=== PATIENT | male | born 1940 | race Caucasian/White ===

== ENCOUNTER 2017-03-26 10:13 | Day surgery (SDC) | payer MEDICARE, OTHER ==
--- NOTE | 2017-03-26 08:18 | HP ---
DATE OF SURGERY: 03/26/2017 HISTORY OF PRESENT ILLNESS: The patient is a 76 year-old who has some problems with his bowels. No prior colonoscopy. He had some lower abdominal vague aches, chronically some constipation. He denies any bloody stools. He had CT scan done on 02/14/2017 with no acute inflammatory, no bowel obstruction, had some incidental gallstones, moderate amount of stool throughout the colon. PAST MEDICAL HISTORY: Hypertension. PAST SURGICAL HISTORY: He had rods and pins in his leg in 1970. Left shoulder replaced in 2006. Hip replaced in 2011. Cataract surgery May 2015. 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 Large right inguinal hernia repair in the past. MEDICATIONS: Amlodipine, lisinopril, clonidine. ALLERGIES: NKDA. PAST SURGICAL HISTORY: FAMILY HISTORY: Negative for colon cancer. SOCIAL HISTORY: No smoking or alcohol abuse. Noncontributory. REVIEW OF SYSTEMS: Twelve systems reviewed per admission assessment. No chest pain or palpitations currently other systems negative or noncontributory as above and per preadmission questionnaire. PHYSICAL EXAMINATION: GENERAL: No acute distress. HEENT: Sclerae nonicteric. NECK: No JVD. CHEST: Equal excursion, nonlabored breathing. CVS: Regular rate and rhythm. ABDOMEN: Soft. No peritoneal signs. EXTREMITIES: No significant edema. NEURO: Alert, moving extremities symmetrically. No gross motor deficits noted. IMPRESSION: Increasing constipation some lower abdominal aches, no prior colonoscopy. He is in need of screening colonoscopy. Risks and benefits explained in detail but not limited to bleeding or infection, small risk of bowel injury or perforation possibly requiring open procedure, small risk of missed or nondiagnosis or incomplete exam possibly requiring barium enema, other studies or procedures. He understands and agrees to the planned procedure and will proceed with outpatient colonoscopy.
[~2017-03-26 10:13] MED LIST: DIPRIVAN 200 MG/20 ML IV ONE; Lactated Ringers 1,000 ML IV SCH; Versed 2 MG/2 ML Injection IV ONE
[2017-03-26 13:04] VITALS: O2SAT 100
[2017-03-26 13:17] VITALS: BP 149/80; PULSE 67
--- NOTE | 2017-03-26 13:54 | OP ---
SURGERY DATE/TIME: 03/26/2017 1139 PREOPERATIVE DIAGNOSES: 1) No prior colonoscopy. 2) Change in bowel habits, increasing constipation. POSTOPERATIVE DIAGNOSES: 1) Large rectal mass extending up to rectosigmoid area near obstructing. 2) Small raised lesion versus hyperplastic lesion mid to distal rectum. 3) Internal and external hemorrhoids. 4) Somewhat poor prep. PROCEDURES: 1) Flexible sigmoidoscopy, hot biopsy raised rectal lesions. 2) Multiple cold biopsies of large rectal extending up to rectosigmoid area mass with ink spot tattooing of location. SURGEON: Dr. Peyman Segovia. ANESTHESIA: MAC. ESTIMATED BLOOD LOSS: Minimal. INDICATIONS: As noted above. Risks and benefits explained in detail but not limited to and consent obtained. DESCRIPTION OF PROCEDURE AND FINDINGS: The patient is taken to the endoscopy room. MAC anesthesia introduced. After official time out and no disagreement with the planned procedure in lateral position, digital rectal exam revealed that the mass was palpable. He had some internal and external hemorrhoids. Video colonoscope inserted up to the rectosigmoid area where this large near obstructing mass was extending from rectosigmoid fpc down to the rectum. Despite careful attempts of navigating past this the opening was not wide enough, patent enough to allow for passage of the scope passed this area. Multiple cold biopsies of the mass were taken and some ink spot tattooing to the seemingly normal appearing mucosa distal to the mass. Other than that prior to doing all the biopsy of this large mass there were some raised lesion versus hyperplastic lesions in the mid to more distal rectum. These were removed with hot biopsy forceps with brief bursts of cautery. Good hemostasis noted. There had been some stool coating this. The patient was not completely obstructed. With finger palpation could easily palpate a few centimeters up on this mass. Therefore at this point as the scope was unable to be passed through there to complete the rest of the colonoscopy. It was felt the patient would benefit for referral for likely official chemo and radiation in attempt to shrink this. The family was explained that there is a possibility if he fails to continue to move his bowels or if he reaches the point of complete obstruction there is possibility of a needing ostomy prior to that. Otherwise if able to get opinion from possible chemo/radiation to shrink this down and proceed with surgery thereafter to allow for possible reanastomosis. Otherwise will discuss with Dr. Mardini recommendations. The patient tolerated the procedure well. There were no immediate complications.
== END 2017-03-26 13:18 | disposition home or self-care (01) ==
LOC: SDC 10:13
PROVIDERS: ATTEND Surgery
PROC: 0DBP8ZX Excision of Rectum, Via Natural or Artificial Opening Endoscopic, Diagnostic (ICD-10-PCS; principal; 2017-03-26)
PROC: 3E0H8GC Introduction of Other Therapeutic Substance into Lower GI, Via Natural or Artificial Opening Endoscopic (ICD-10-PCS; 2017-03-26)
DX: C20 Malignant neoplasm of rectum (principal); K63.5 Polyp of colon; R22.9 Localized swelling, mass and lump, unspecified; K64.4 Residual hemorrhoidal skin tags; K64.8 Other hemorrhoids; K59.00 Constipation, unspecified; I10 Essential (primary) hypertension
CPT/HCPCS: 00810; 36415; 88305; 99100; J2250; J2704

== ENCOUNTER 2017-04-05 08:45 | Day surgery (SDC) | payer MEDICARE, OTHER ==
--- NOTE | 2017-04-03 08:52 | HP ---
PROCEDURE DATE: 04/05/17 HISTORY OF PRESENT ILLNESS: Patient is a 76 y/o with no prior colonoscopy. Had been having problems with constipation. He just underwent colonoscopy. He had a very low-lying tumor extending down into his rectum. Given the massive size, this was near obstructing. Did tolerate the bowel prep. [place] he would benefit from attempted neoadjuvant chemotherapy given the size of the tumor prior to attempted surgical resection. CURRENT MEDICATIONS: Include lisinopril, clonidine, and amlodipine. ALLERGIES: NKDA. PAST SURGICAL HISTORY: Has had a skin cancer removed in the past, had hernia surgery, cataract surgery, and a hip surgery a couple times on the left. He had right shoulder replaced. Had a broken leg back in the that he had worked on. FAMILY HISTORY: Negative for colon cancer. SOCIAL HISTORY: No alcohol abuse. No smoking. REVIEW OF SYSTEMS: 12 systems reviewed per admission assessment. No chest pain or palpitations. Other systems negative or noncontributory other than above and per preadmission questionnaire. PHYSICAL EXAMINATION: GENERAL: No acute distress. HEENT: Sclerae nonicteric. NECK: No JVD. CHEST: Equal excursion. Nonlabored breathing. CVS: Regular rate and rhythm. ABDOMEN: Soft. No peritoneal signs. EXTREMITIES: No significant edema. NEURO: Alert, moving extremities symmetrically. No gross motor deficits noted. IMPRESSION: 1. 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 FEEL HE NEEDS SOME NEOADJUVANT TREATMENT WITH CHEMO AND RADIATION. Seen Dr. Guerra and now needs a Port-a-Cath placement to start treatments. Later on, if there are problems at all with the treatment, would proceed with resection at a later date following neoadjuvant therapy. He understands if he failed to progress enough and developed an obstruction, he could need an ostomy in the short-term. Otherwise, at this time, will proceed with Port-a-Cath placement. General risks of Port-a-Cath placement including, but not limited to, bleeding; infection; risk of hematoma or seroma formation vs thrombosis or pneumothorax; risk of aches or pains; risk of port infection or port or catheter fracture or failure possibly requiring removal or replacement; general risks of anesthesia, deep vein thrombosis, pulmonary embolism, or pneumonia; remote risk of arterial or other major venous issue or injury; risk of ongoing morbidity and mortality, but not limited to. He understands and agrees to the planned procedure. Will proceed with Port-a-Cath placement as an outpatient. Will give neoadjuvant treatment of this cancer in the upper rectum extending down into the rectum, this large, near obstructing mass prior to considering surgical resection.
[~2017-04-05 08:45] MED LIST changes: +CEFAZOLIN 2 GM-D5W BAG** 2 GM/50 ML ML IV ONE; -DIPRIVAN 200 MG/20 ML IV ONE; +Lactated Ringers 0 ML IV ONE; +Lactated Ringers 1,000 ML IV ONE; -Versed 2 MG/2 ML Injection IV ONE; +XYLOCAINE 1% HCL 20 ML MDV ONE
[2017-04-05] MEDS ORDERED: XYLOCAINE 1% HCL 20 ML MDV ONE (10:44)
[2017-04-05 13:14] VITALS: BP 157/93; PULSE 60; O2SAT 97
[2017-04-05] MEDS ORDERED: SUBLIMAZE 100 MCG/2 ML IV ONE (15:53)
[2017-04-05] MEDS ORDERED: DIPRIVAN 200 MG/20 ML IV ONE (15:53)
--- NOTE | 2017-04-06 03:03 | XRAY ---
Indication: Port placement. Intraoperative fluoroscopy was provided for 7 seconds. A single digital spot image submitted for interpretation demonstrates the left jugular port catheter to extend into the mid SVC pointing inferiorly. Correlate with intraoperative findings/report.
--- NOTE | 2017-04-06 07:45 | OP ---
SURGERY DATE/TIME: 04/05/2017 1020 PREOPERATIVE DIAGNOSIS: Large near obstructing rectal cancer in need of neoadjuvant chemotherapy access. POSTOPERATIVE DIAGNOSIS: Large near obstructing rectal cancer in need of neoadjuvant chemotherapy access. PROCEDURE: Tunnel Port-A-Cath placement with C-arm fluoroscopy with ultrasound guided interpretation and cannulation left internal jugular vein. SURGEON: Dr. Peyman Segovia. ANESTHESIA: MAC. 1% lidocaine local. ESTIMATED BLOOD LOSS: Minimal. INDICATIONS: As noted above. Risks and benefits explained in detail and not limited to and consent was obtained. DESCRIPTION OF PROCEDURE AND FINDINGS: The patient is taken to the operating room. MAC anesthesia introduced. Neck and chest prepped and draped in usual sterile fashion. After official time out and no disagreement with planned procedure in Trendelenburg position 1% lidocaine local was infiltrated in the left subclavicular area. 18 gauge cannulation needle was inserted but despite a couple of passes there were inadequate return for any passage of the guide wire. It was then elected to go to the jugular approach. Ultrasound sterile probe, sterile jelly. Transducer easily compressible left internal jugular vein was identified. 1% lidocaine local was infiltrated. Even this easily visible vein it had a dense wall. It was not easy to stay in the lumen to allow for aspiration. Whether he was low on volume or not was decompressed. There was a fine line between being out of the vein or through the vein finally allowing enough adequate venous return. The guide wire was passed without difficulty. However initially it was wanting to go up the right jugular on C-arm fluoroscopy. It was repositioned, directed down the superior vena cava confirmed on C-arm fluoroscopy with spot film. At this point tunnel track and port pocket area anesthetized with 1% lidocaine local. A transverse incision made inferior subcu. Port pocket created with aide of cautery. Port secured to the chest wall with Prolene suture x2. Catheter tunneled down from the cannulation stab wound in the neck down the port pocket on the chest. Dilator break away sheath easily fed over the guide wire. The catheter was fed down the breakaway sheath. However the catheter is wanting to flip up the right jugular on C-arm fluoroscopy and this necessitated pulling the catheter back. Re-advancing the guide wire through the catheter which was then directed back down the superior vena cava with spot films with C-arm. As this was confirmed the guide wire is removed. The catheter is confirmed down the superior vena cava on C-arm fluoroscopy. Lung peña noted to be up bilaterally. Catheter snapped on the port with the hub. It aspirated dark nonpulsatile venous return with ease, flushed with heparinized saline with ease. On C-arm fluoroscopy the lung peña noted to be up bilaterally. The catheter tip was in the distal superior vena cava on C-arm fluoroscopy. It was felt that no further x-rays were necessary. The patient tolerated the procedure well. There were no immediate complications. Findings discussed with the family out in the waiting area. Will proceed with neoadjuvant chemotherapy for large rectal cancer.
== END 2017-04-05 12:20 | disposition home or self-care (01) ==
LOC: SDC 08:45
PROVIDERS: ATTEND Surgery
PROC: 05HN33Z Insertion of Infusion Device into Left Internal Jugular Vein, Percutaneous Approach (ICD-10-PCS; principal; 2017-04-05)
DX: C20 Malignant neoplasm of rectum (principal); Z95.828 Presence of other vascular implants and grafts; Z85.828 Personal history of other malignant neoplasm of skin
CPT/HCPCS: 00532; 77001; 99100; C1788; J0690; J1642; J2704; J3010

== ENCOUNTER 2017-06-25 09:00 | Day surgery (SDC) | payer MEDICARE, OTHER ==
--- NOTE | 2017-06-22 13:11 | HP ---
DATE OF SURGERY: 06/25/2017 HISTORY OF PRESENT ILLNESS: The patient is a 77 year-old with history of rectal cancer. He is on neoadjuvant chemotherapy as it was upper part of his rectum. He now needs follow up colonoscopy to determine if he is a candidate for considering surgical resection. PAST MEDICAL HISTORY: Includes colon cancer, hypertension. PAST SURGICAL HISTORY: Hip placement in the past. Shoulder replacement. Cataract surgery. Rods and pins in his leg in the past. Colonoscopy and biopsy. Port-A-Cath placement. MEDICATIONS: Includes lisinopril, clonidine, amlodipine, iron tablets. ALLERGIES: NKDA. FAMILY HISTORY: Diabetes, hypertension, lung cancer. SOCIAL HISTORY: No alcohol abuse. REVIEW OF SYSTEMS: Twelve systems reviewed as noted above. No chest pain or palpitations other systems negative or noncontributory as above and per preadmission questionnaire. PHYSICAL EXAMINATION: GENERAL: No acute distress. HEENT: Sclerae nonicteric. NECK: No JVD. CHEST: Equal excursion, nonlabored breathing. CVS: Regular rate and rhythm. ABDOMEN: Soft. No peritoneal signs. EXTREMITIES: No significant edema. NEURO: Alert, moving extremities symmetrically. No gross motor deficits noted. IMPRESSION: History of upper rectal up to rectosigmoid area cancer. He has had some neoadjuvant treatment and needs follow up flexible sigmoidoscopy for further evaluation to see if he is a candidate to consider resection, reanastomosis versus removal of the rectum and enterostomy. Risks and benefits explained in detail including but not limited to bleeding or infection, small risk of bowel injury or perforation, small risk of sedation or anesthesia, small risk of bowel prep, risk of nausea and cramping afterwards. He understands and agrees to the planned procedure and will proceed with flexible sigmoidoscopy to evaluate this area of rectal cancer for further evaluation to determine definitive surgical procedure.
[~2017-06-25 09:00] MED LIST changes: -CEFAZOLIN 2 GM-D5W BAG** 2 GM/50 ML ML IV ONE; -Lactated Ringers 0 ML IV ONE; -Lactated Ringers 1,000 ML IV ONE; -XYLOCAINE 1% HCL 20 ML MDV ONE
[2017-06-25] MEDS ORDERED: Ketamine HCl 50 MG/ML IV ONE (09:01)
[2017-06-25] MEDS ORDERED: DIPRIVAN 200 MG/20 ML IV ONE (09:01)
[2017-06-25] MEDS ORDERED: Sodium Chloride 0.9% 10 ML FLUSH Syringe PORT FLUSH PRN (11:21)
[2017-06-25 11:25] VITALS: BP 137/91; PULSE 48; O2SAT 95
--- NOTE | 2017-06-26 09:04 | OP ---
SURGERY DATE/TIME: 06/25/2017 1000 PREOPERATIVE DIAGNOSIS: Rectal cancer status post neoadjuvant chemo and radiation, in need of follow up endoscopy to evaluate and determine if he is a candidate for proceeding with surgical intervention and resection. POSTOPERATIVE DIAGNOSIS: Ulcerated mass rectum about 8 cm from the anal verge. PROCEDURE: Flexible sigmoidoscopy with ink spot tattoo of distal margin of rectal mass. SURGEON: Dr. Peyman Segovia. ANESTHESIA: MAC. ESTIMATED BLOOD LOSS: Minimal. INDICATIONS: As noted above. Risks and benefits explained in detail and not limited to and consent obtained. DESCRIPTION OF PROCEDURE AND FINDINGS: The patient is taken to the endoscopy room. MAC anesthesia was introduced. After official time out and no disagreement with planned procedure, the patent had some internal and external hemorrhoids. Video colonoscope inserted and passed up about 8 to 10 cm and was at the bottom edge of the ulcerated mass. It had not appeared to have resolved with neoadjuvant treatment. The scope was able to be passed up through there. More proximal colon was benign. The scope was pulled back. Ink spot tattooing was accomplished injecting in three separate sites 1 cc of ink spot tattoo marking the distal margin of this ulcerated mass. This gentleman is frail but appears to be high enough in the rectum that it would be worthwhile to attempt resection and re-anastomosis. The family was explained that there was a possibility that he might need an ostomy whether temporary or longer term. I will see him back in the office next week to go over the results.
== END 2017-06-25 11:38 | disposition home or self-care (01) ==
LOC: SDC 09:00
PROVIDERS: ATTEND Surgery
PROC: 3E0H8GC Introduction of Other Therapeutic Substance into Lower GI, Via Natural or Artificial Opening Endoscopic (ICD-10-PCS; principal; 2017-06-25)
DX: K62.89 Other specified diseases of anus and rectum (principal); Z85.048 Personal history of other malignant neoplasm of rectum, rectosigmoid junction, and anus; Z85.038 Personal history of other malignant neoplasm of large intestine; I10 Essential (primary) hypertension; Z79.899 Other long term (current) drug therapy
CPT/HCPCS: 00810; 99100; J1642; J2704

== ENCOUNTER 2018-06-24 09:55 | Day surgery (SDC) | payer MEDICARE, OTHER ==
--- NOTE | 2018-06-24 08:56 | HP ---
DATE OF SURGERY: 06/24/2018 HISTORY OF PRESENT ILLNESS: The patient is an 78 year-old gentleman who has history of cancer status post resection. He is okay, bowel movements are fine, no bloody stools. He is in need of follow up colonoscopy for further evaluation. PAST MEDICAL HISTORY: Hypertension, rectal cancer. He had cerebrovascular accident in the past. Pneumothorax in the past. PAST SURGICAL HISTORY: Fracture of the leg in the past. He had hernia repair. Shoulder replacement. Hip replacement. Lesions removed from his cheek in the past. Cataract surgery, colonoscopy. He also had resection for his colorectal cancer in the past. MEDICATIONS: His most recent medication includes lisinopril, clonidine, amlodipine. ALLERGIES: NKDA. FAMILY HISTORY: Diabetes, hypertension. Negative for colon cancer. SOCIAL HISTORY: He quit smoking in . He smoked three packs per day in the past. He denies alcohol abuse. REVIEW OF SYSTEMS: Twelve systems reviewed. No chest pain or palpitations other systems negative or noncontributory as above and per preadmission questionnaire. PHYSICAL EXAMINATION: GENERAL: No acute distress. HEENT: Sclerae nonicteric. NECK: No JVD. CHEST: Equal excursion, nonlabored breathing. CVS: Regular rate and rhythm. ABDOMEN: Soft. No peritoneal signs. EXTREMITIES: No significant edema. NEURO: Alert, moving extremities symmetrically. No gross motor deficits noted. RECTAL: Deferred timed to endoscopy exam. IMPRESSION: History of cancer status post resection. He is in need of follow up colonoscopy. I feel he is a candidate. Risks and benefits explained in detail including but not limited to bleeding or infection, small risk of bowel injury or perforation possibly requiring open procedure, risk of missed or nondiagnosis or incomplete exam possibly requiring barium enema, other studies or procedures. He understands and agrees to the planned procedure and will proceed with outpatient follow up colonoscopy.
[2018-06-24] MEDS ORDERED: Ketamine HCl 50 MG/ML IJ ONE (09:56)
[2018-06-24] MEDS ORDERED: DIPRIVAN 200 MG/20 ML IV ONE (09:56)
[2018-06-24] MEDS ORDERED: Lactated Ringers 1,000 ML IV SCH (10:00)
[2018-06-24] MEDS ORDERED: Lactated Ringers 1,000 ML IV ONE (10:01)
[2018-06-24 13:39] VITALS: BP 150/86; PULSE 56; O2SAT 95
--- NOTE | 2018-06-25 07:49 | OP ---
SURGERY DATE/TIME: 06/24/2018 1136 PREOPERATIVE DIAGNOSIS: History of colorectal cancer in need of follow up colonoscopy. POSTOPERATIVE DIAGNOSES: 1) Mild inflammation colorectal anastomotic site. No obvious mass. 2) Rectal polyp. 3) Additional small raised lesion rectum. 4) Small raised lesion versus hyperplastic lesion transverse colon. 5) Diverticulosis. 6) Somewhat poor prep limiting the exam. 7) Small internal and external hemorrhoids. PROCEDURES: 1) Colonoscopy to cecum with hot biopsy small raised lesions versus hyperplastic in transverse colon x2. 2) Hot snare polypectomy small rectal polyp. 3) Hot biopsy small raised lesion versus early polyp versus early second polyp rectum. 4) Cold biopsy margin of inflammation anastomotic site. SURGEON: Dr. Peyman Segovia. ANESTHESIA: MAC. ESTIMATED BLOOD LOSS: Minimal. INDICATIONS: As noted above. Risks and benefits explained in detail but not limited to and consent obtained. DESCRIPTION OF PROCEDURE AND FINDINGS: The patient is taken to the operating room. MAC anesthesia introduced. After official time out and no disagreement with planned procedure, digital rectal exam did not reveal any rectal masses. He did have small internal and external hemorrhoids. Video colonoscope inserted and passed up through the anastomotic site to the tortuous sigmoid, descending and transverse colon. With external pressure the scope was able to be passed around the cecum. Appendiceal orifice and valve well visualized. Prep overall was somewhat poor with some liquidy semi-solid stool limiting the exam. It was suctioned and irrigated as well as possible but did limit the exam for small lesions. On withdrawal of the scope there were no signs of any large polyps, masses or obstructing lesions in the right colon. He had a couple of small, little raised lesions versus hyperplastic lesion in the transverse colon removed with hot biopsy forceps. Good hemostasis noted. He had some diverticulosis. The scope pulled back through the left colon through the anastomotic site. He had some mild inflammation. No evidence of any obvious mass. Cold biopsy taken of this mild inflammation in the margin. Otherwise a small early polyp versus hyperplastic lesions in the rectum and distal anastomotic site removed with hot biopsy forceps. There was an additional 3.5 to 4 mm polyp in the distal anastomotic site that is removed with hot snare polypectomy. Good hemostasis noted. Otherwise he did have some internal and external hemorrhoids. There were no signs of any large polyps, masses or obstructing lesions. Findings discussed with the family out in the waiting area. I will see him back in the office to go over results in a couple weeks.
== END 2018-06-24 12:55 | disposition home or self-care (01) ==
LOC: SDC 09:55
PROVIDERS: ATTEND Surgery
DX: K52.9 Noninfective gastroenteritis and colitis, unspecified (principal); K62.1 Rectal polyp; Z85.038 Personal history of other malignant neoplasm of large intestine; K63.9 Disease of intestine, unspecified; K62.9 Disease of anus and rectum, unspecified; K57.30 Diverticulosis of large intestine without perforation or abscess without bleeding; K64.4 Residual hemorrhoidal skin tags; K64.8 Other hemorrhoids; Z90.49 Acquired absence of other specified parts of digestive tract; Z86.73 Personal history of transient ischemic attack (TIA), and cerebral infarction without residual deficits; I10 Essential (primary) hypertension; Z79.899 Other long term (current) drug therapy
CPT/HCPCS: 88305; 94250; 99100; J2704

== ENCOUNTER 2019-02-03 10:25 | Day surgery (SDC) | payer MEDICARE, OTHER ==
--- NOTE | 2019-02-03 08:48 | HP ---
DATE OF SURGERY: 02/03/2019 HISTORY OF PRESENT ILLNESS: The patient is an 78 year-old with prior history of some rectal-rectosigmoid area cancer in the past. Recently had a nonhealing lesion on the right side of his face. 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 He is in need of excision at this point. PAST MEDICAL HISTORY: Colorectal cancer. Diabetes. Hypertension. History of stroke in the past. Lung cancer. PAST SURGICAL HISTORY: Resection colorectal cancer, follow up chemotherapy after that. He had some radiation prior to that. Port-A-Cath. Endoscopy. Cancer removed from his cheek in 2016. Hernia surgery in the past. Cataracts. Left hip replaced. Left lung collapse in the past. Right shoulder replacement. Broken left leg in the very distant past back in the s. MEDICATIONS: Lisinopril, clonidine, amlodipine, iron tablets. ALLERGIES: HE AVOIDS ASPIRIN BUT NO OTHER DRUG ALLERGIES. FAMILY HISTORY: Negative in regards to this problem. SOCIAL HISTORY: No alcohol abuse. REVIEW OF SYSTEMS: Twelve systems reviewed per admission assessment. No chest pain or palpitations other systems negative or noncontributory as above and per preadmission questionnaire. PHYSICAL EXAMINATION: GENERAL: No acute distress. HEENT: Sclerae nonicteric. NECK: No JVD. CHEST: Equal excursion, nonlabored breathing. CVS: Regular rate and rhythm. ABDOMEN: Soft. No peritoneal signs. EXTREMITIES: No significant edema. NEURO: Alert, moving extremities fairly symmetrically. The right side of his face he has a new area that had some nonhealing area in need of excision. 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 I feel this is likely a new area but feel he would benefit from excision possible flap possible skin grafting pending operative findings. Risks and benefits explained in detail including but not limited to bleeding or infection, risk of involved margins possibly requiring other procedures or wider excision, risk of failure to heal the flap or graft possibly need other procedures or healing by secondary intent. General risk of anesthesia, deep venous thrombosis, pulmonary embolism, pneumonia, risk of cardiopulmonary event or stroke but not limited to. He understands all of the above as well as general risk of nerve irritation, scar formation or injury, risk of dry eye or drooping eyelid or weak chewing muscle or drooped lip but not limited to. He understands all the above but not limited to, will proceed with excisional biopsy of nonhealing right face lesion, possible flap, possible skin graft as an outpatient.
[~2019-02-03 10:25] MED LIST changes: +CEFAZOLIN 2 GM-D5W BAG** 2 GM/50 ML ML IV ONE; +Lactated Ringers 0 ML IV ONE; +Lactated Ringers 1,000 ML IV ONE; +MINERAL OIL LIGHT 10 ML FOR SURGERY ONE; +Sensorcaine 0.25% 10 ML ONE
[2019-02-03] MEDS ORDERED: Zofran 4 MG/2 ML VIAL IV ONE ×2 (10:26→16:32)
[2019-02-03] MEDS ORDERED: Xylocaine-Mpf 2% 5 Ml Vial IJ ONE (10:26)
[2019-02-03] MEDS ORDERED: SUBLIMAZE 100 MCG/2 ML IV ONE (10:26)
[2019-02-03] MEDS ORDERED: Decadron 4 MG INJ IV ONE (10:26)
[2019-02-03] MEDS ORDERED: Quelicin Fliptop 200 MG/10 ML IV ONE (10:26)
[2019-02-03] MEDS ORDERED: Zemuron 100 MG/10 ML IV ONE (10:26)
[2019-02-03] MEDS ORDERED: DIPRIVAN 200 MG/20 ML IV ONE (10:26)
[2019-02-03] MEDS ORDERED: APRESOLINE 20 MG/ML INJ IV ONE (11:15)
[2019-02-03] MEDS ORDERED: NORCO 5/325 MG PO PRN (15:17)
[2019-02-03] MEDS ORDERED: MORPHINE SULFATE 2 MG INJ IV ONE (16:00)
[2019-02-03] MEDS ORDERED: MORPHINE SULFATE 2 MG INJ ONE (16:02)
[2019-02-03] MEDS ORDERED: Zofran 4 MG/2 ML VIAL ONE (16:34)
[2019-02-03 16:50] VITALS: BP 131/78; PULSE 86; O2SAT 95
--- NOTE | 2019-02-04 08:33 | OP ---
SURGERY DATE/TIME: 02/03/2019 1342 PREOPERATIVE DIAGNOSIS: History of skin cancer in the past now nonhealing right face lesion in need of excision. POSTOPERATIVE DIAGNOSIS: History of skin cancer in the past now nonhealing right face lesion in need of excision. PROCEDURE: Excisional biopsy nonhealing right face lesion (approximately 3 cm with margins) complex closure with rotational advancement flap. SURGEON: Dr. Peyman Segovia. ANESTHESIA: General. ESTIMATED BLOOD LOSS: Minimal. INDICATIONS: As noted above. Risks and benefits explained in detail and not limited to and consent obtained. DESCRIPTION OF PROCEDURE AND FINDINGS: The patient is taken to the operating room. The site had been confirmed in the preoperative holding area. General anesthesia induced. Face prepped and draped in usual sterile fashion. After official time out and no disagreement with planned procedure, marking out to normal appearing skin around this large lesion required excision of approximately 3 cm including the margins in vivo. Dissection carried down to normal appearing subcutaneous tissue beneath. Specimen passed off for pathology. This was too close to his lower eye lid to do simple closure. It was felt he needed a rotational advancement flap. Therefore the flap lines were made, some rios angles created and the flap was carefully advanced rotated upward towards the defect. Once this was accomplished, it was closed with interrupted 4-0 Vicryl closing the deep dermis taking the tension off the flap then the flap was then secured to the skin level with interrupted and running 5-0 Prolene in tension free manner. Good hemostasis noted. The patient tolerated the procedure well. There were no immediate complications. Findings discussed with the family out in the waiting area.
== END 2019-02-03 17:09 | disposition home or self-care (01) ==
LOC: SDC 10:25
PROVIDERS: ATTEND Surgery
DX: C44.319 Basal cell carcinoma of skin of other parts of face (principal); Z85.828 Personal history of other malignant neoplasm of skin; I10 Essential (primary) hypertension; E11.9 Type 2 diabetes mellitus without complications; Z85.038 Personal history of other malignant neoplasm of large intestine
CPT/HCPCS: 99100; J0330; J0360; J0690; J1100; J2270; J2405; J2704; J3010; A9270-GY

== ENCOUNTER 2019-08-04 08:29 | Day surgery (SDC) | payer MEDICARE, OTHER ==
--- NOTE | 2019-08-04 08:15 | HP ---
DATE OF SURGERY: 08/04/2019 HISTORY OF PRESENT ILLNESS: The patient is an 79 year-old who had colon cancer in the past, had laparoscopic assisted low anterior resection, prior reanastomosis, in need of follow up colonoscopy. He denies any bloody stools. He denies any change in his bowel movements. He is in need of follow up screening colonoscopy. PAST MEDICAL HISTORY: Colorectal cancer in the past. Hypertension in the past. He had rods and pins in his leg in the past. Collapsed lung in the past. He had chemo and radiation prior to low anterior resection in the past. Prior history of stroke in the past. PAST SURGICAL HISTORY: Partial colectomy. Reanastomosis in the past. Shoulder replaced. Hip replaced. Cataract surgery in the past. He had endoscopy in the past. He had hernia surgery. Skin cancer removed from his cheek. Port-A-Cath placement in the past. MEDICATIONS: Lisinopril, clonidine, amlodipine, iron tablets. ALLERGIES: NKDA. SENSITIVE TO ASPIRIN. FAMILY HISTORY: Negative in regards to this problem. SOCIAL HISTORY: No alcohol abuse. REVIEW OF SYSTEMS: Fourteen systems reviewed per admission assessment. Prior history of stroke in the past, hypertension and colorectal cancer. Other systems negative or noncontributory as above and per preadmission questionnaire. PHYSICAL EXAMINATION: GENERAL: No acute distress. HEENT: Sclerae nonicteric. NECK: No JVD. CHEST: Equal excursion, nonlabored breathing. CVS: Regular rate and rhythm. ABDOMEN: Soft, nontender. EXTREMITIES: No edema. NEURO: Alert, moving extremities symmetrically. RECTAL: Deferred timed to endoscopy exam. IMPRESSION: History of colorectal cancer, need for follow up colonoscopy. I feel he is a candidate. Risks and benefits explained in detail including bleeding or infection, risk of bowel injury or perforation possibly requiring open procedure, risk of missed or nondiagnosis or incomplete exam possibly requiring barium enema, other studies or procedures, general risk of anesthesia or sedation but not limited to. He understands and agrees to the planned procedure, will proceed with outpatient colonoscopy.
[~2019-08-04 08:29] MED LIST changes: -CEFAZOLIN 2 GM-D5W BAG** 2 GM/50 ML ML IV ONE; -MINERAL OIL LIGHT 10 ML FOR SURGERY ONE
[2019-08-04 09:24] VITALS: O2SAT 97
[2019-08-04] MEDS ORDERED: DIPRIVAN 200 MG/20 ML IV ONE (10:28)
[2019-08-04 11:57] VITALS: BP 142/71; PULSE 59
--- NOTE | 2019-08-04 14:39 | OP ---
SURGERY DATE/TIME: 08/04/2019 1027 PREOPERATIVE DIAGNOSIS: Prior history of colorectal carcinoma, status post low anterior resection, need for follow up colonoscopy. POSTOPERATIVE DIAGNOSES: 1) Small raised lesion versus early polyp versus hyperplastic lesion of rectum. 2) Patent anastomosis. No signs of cancer recurrence. 3) Diverticulosis. 4) Tortuous colon. 5) Adequate bowel prep. PROCEDURES: Colonoscopy. SURGEON: Dr. Peyman Segovia. ANESTHESIA: MAC. ESTIMATED BLOOD LOSS: Minimal. INDICATIONS: As noted above. Risks and benefits explained in detail but not limited to and consent obtained. DESCRIPTION OF PROCEDURE AND FINDINGS: The patient is taken to the operating room. MAC anesthesia introduced. After official time out and no disagreement with planned procedure, digital rectal exam did not reveal any rectal masses. He did have some small internal and external hemorrhoids. Video colonoscope inserted and passed through the patent anastomosis. No evidence of any cancer recurrence up to the tortuous descending, transverse and ascending colon over to the cecum. Appendiceal orifice and valve well visualized. Prep overall was adequate. There was fair amount of semi-solid liquidy stool throughout the colon that was suction irrigated as well as possible but did slightly limit the exam for tiny lesions. I feel it was adequate enough that I do not feel any large lesions or masses were noted. The scope is slowly and carefully withdrawn. There were no signs of any large polyps, masses or obstructing lesions. He did have some diverticulosis. Again, the anastomosis was patent. He did have small raised lesions versus hyperplastic lesions versus early polyp in the rectum that was removed with hot biopsy forceps with brief bursts of cautery. Good hemostasis noted. He had some small internal hemorrhoids. There were no signs of any large polyps, masses or obstructing lesions. The scope is withdrawn. The patient tolerated the procedure well. There were no immediate complications. Findings discussed with the family out in the waiting area. If the path is benign, would recommend follow up colonoscopy in three years given prep quality.
== END 2019-08-04 12:06 | disposition home or self-care (01) ==
LOC: SDC 08:29
PROVIDERS: ATTEND Surgery
DX: Z12.11 Encounter for screening for malignant neoplasm of colon (principal); Z08 Encounter for follow-up examination after completed treatment for malignant neoplasm; Z85.038 Personal history of other malignant neoplasm of large intestine; K64.8 Other hemorrhoids; K62.1 Rectal polyp; K57.30 Diverticulosis of large intestine without perforation or abscess without bleeding; I10 Essential (primary) hypertension; Z79.899 Other long term (current) drug therapy
CPT/HCPCS: 88305; 99100; J2704

== ENCOUNTER 2022-05-01 08:27 | Day surgery (SDC) | payer MEDICARE, OTHER ==
--- NOTE | 2022-05-01 07:53 | HP ---
DATE OF SURGERY: 05/01/2022 HISTORY OF PRESENT ILLNESS: The patient is an 82-year-old with history of colorectal cancer in the past, five years ago or so. He had resection. He had a little bit elevate CEA level now. He is in need of follow up colonoscopy. PAST MEDICAL HISTORY: He had colon cancer, hypertension. He had a collapsed lung in the past. He had a stroke in the past. Pulmonary embolism in the past. Chronic obstructive pulmonary disease. PAST SURGICAL HISTORY: He had partial colectomy, low anterior resection and reanastomosis in the past. Shoulder replaced. Hip replaced. Cataract surgery in the past. Endoscopy in the past. Knee surgery in the past. Skin cancer removed from his cheek in the past. He had a Port-A-Cath placement in the past. MEDICATIONS: DuoNeb, vitamin B-12, guaifenesin, Xarelto, Norvasc, Clonidine, lisinopril, acetaminophen. ALLERGIES: ASPIRIN. FAMILY HISTORY: Negative in regards to this problem. SOCIAL HISTORY: Former smoker. No alcohol abuse. REVIEW OF SYSTEMS: Fourteen systems reviewed. Negative or noncontributory as above and per preadmission questionnaire. PHYSICAL EXAMINATION: GENERAL: No acute distress. HEENT: Sclerae nonicteric. NECK: No JVD. CHEST: Equal excursion, nonlabored breathing. CVS: Regular rate and rhythm. ABDOMEN: Soft. No peritoneal signs. EXTREMITIES: No cyanosis. NEURO: Alert. RECTAL: Deferred timed to endoscopy exam. PSYCH: Appropriate mood and affect. IMPRESSION: History of rectal cancer. He has elevated CEA and needs follow up colonoscopy. Risks and benefits explained in detail including risk of bleeding or infection, risk of bowel injury or perforation, risk of missed or nondiagnosis or incomplete exam possibly requiring barium enema, other studies or procedures, general risk of anesthesia or sedation, risk of bowel prep but not limited to, consent obtained. Will proceed with colonoscopy under MAC anesthesia as an outpatient.
[~2022-05-01 08:27] MED LIST changes: -Lactated Ringers 0 ML IV ONE; -Lactated Ringers 1,000 ML IV ONE; -Sensorcaine 0.25% 10 ML ONE
[2022-05-01] MEDS ORDERED: Lactated Ringers 1,000 ML IV ONE (08:49)
[2022-05-01] MEDS ORDERED: DIPRIVAN 200 MG/20 ML IV ONE (10:12)
[2022-05-01] MEDS ORDERED: ROBINUL ONE (10:56)
[2022-05-01 12:14] VITALS: O2SAT 97
[2022-05-01] MEDS ORDERED: Sodium Chloride 0.9% 10 ML FLUSH Syringe PORT FLUSH PRN (12:23)
[2022-05-01 12:39] VITALS: BP 167/98; PULSE 65
--- NOTE | 2022-05-01 12:55 | OP ---
SURGERY DATE/TIME: 05/01/2022 1051 PREOPERATIVE DIAGNOSIS: Prior history of colorectal carcinoma status post low anterior resection. History of elevated CEA, need for follow up colonoscopy. POSTOPERATIVE DIAGNOSES: 1) ASA Class III. 2) No gross visible evidence of intraluminal recurrence. 3) Small early polyp versus hyperplastic lesion transverse colon and rectum. 4) Fair prep. 5) Withdrawal time about 9 minutes. PROCEDURES: 1) Colonoscopy to cecum. 2) Hot biopsy polypectomy small early polyp versus hyperplastic lesion transverse colon and rectum. 3) Random cold biopsies anastomotic site. SURGEON: Dr. Peyman Segovia. ANESTHESIA: MAC. ESTIMATED BLOOD LOSS: Minimal. INDICATIONS: As noted above. Risks and benefits explained in detail but not limited to and consent obtained. DESCRIPTION OF PROCEDURE AND FINDINGS: The patient is taken to the endoscopy room. MAC anesthesia induced. After official time out and no disagreement with planned procedure, digital rectal exam did not reveal any palpable recurrence. Video colonoscope inserted and passed up through the left colon around the transverse, ascending colon to cecum. Appendiceal orifice and valve well visualized and photo documented. The very tip of distal ileum was grossly unremarkable. Prep overall was fair, a little bit of liquidy semisolid stool just slightly limiting the exam for very small lesions. The scope is then carefully withdrawn over the next 9 minutes. No signs of any large polyps, masses or obstructing lesions. There was a little, tiny transverse colon early polyp versus hyperplastic lesion removed with hot biopsy forceps with brief bursts of cautery. Good hemostasis noted. He had a few scattered diverticula in the left colon. Otherwise the anastomotic site was widely patent. No signs of any gross visible recurrence. Random cold biopsies were taken around the area for completeness given his history of elevated CEA level. Otherwise more distally in the rectum, there was a benign appearing small early polyp versus hyperplastic lesion removed with hot biopsy forceps with brief bursts of cautery. Good hemostasis noted. Random cold biopsies were taken of the anastomotic site. The patient tolerated the procedure well. There were no immediate complications.
== END 2022-05-01 12:30 | disposition home or self-care (01) ==
LOC: SDC 08:27
PROVIDERS: ATTEND Surgery
DX: Z08 Encounter for follow-up examination after completed treatment for malignant neoplasm (principal); Z85.038 Personal history of other malignant neoplasm of large intestine; D12.3 Benign neoplasm of transverse colon; K62.1 Rectal polyp
CPT/HCPCS: 99100; J1642; J2704

== ENCOUNTER 2022-10-02 12:02 | Day surgery (SDC) | payer MEDICARE, OTHER ==
--- NOTE | 2022-10-02 08:58 | HP ---
DATE OF SURGERY: 10/02/2022 HISTORY OF PRESENT ILLNESS: The patient is an 82-year-old has a nonhealing lesion on his left face in need of excision. PAST MEDICAL HISTORY: Cataracts, chronic obstructive pulmonary disease, chronic swelling in the past, colon cancer, hypertension, arthritis. History of stroke in the past. Pulmonary embolism in the past. Skin cancer in the past. PAST SURGICAL HISTORY: Partial colectomy. Low anterior resection and reanastomosis. Shoulder replaced. Hip replaced. Cataract surgery. Endoscopy in the past. Knee surgery in the past. He had a port in the past. MEDICATIONS: He has been on some DuoNeb, vitamin B12, guaifenesin, lisinopril, Norvasc, Clonidine, Xarelto. ALLERGIES: ASPIRIN. FAMILY HISTORY: Negative in regards to this problem. SOCIAL HISTORY: Former smoker. No alcohol abuse. REVIEW OF SYSTEMS: Fourteen systems reviewed. No chest pain or palpitations. Other systems negative or noncontributory as above and per preadmission questionnaire. PHYSICAL EXAMINATION: GENERAL: No acute distress. HEENT: Sclerae nonicteric. NECK: No JVD. CHEST: Equal excursion, nonlabored breathing. CVS: Regular rate and rhythm. ABDOMEN: Soft. No peritoneal signs. EXTREMITIES: No significant edema. NEURO: Alert, oriented, moving extremities symmetrically. PSYCH: Appropriate mood and affect. SKIN: On the face he has got a nonhealing, enlarging lesion left preauricular face lesion in need of excision of indeterminate behavior. IMPRESSION: Nonhealing lesion left face in need of excisional biopsy as it is a nonhealing healing, enlarging lesion of indeterminate behavior it is need of excision possible flap closure pending operative findings. Risks and benefits explained in detail including but not limited to bleeding or infection, risk of involved margins possibly requiring other procedures or wide excision possible skin graft, risk of aches, pains, burning or numbness, risk of scar formation, risk of anesthesia, deep vein thrombosis, pulmonary embolism, pneumonia, risk of stroke, risk of bleeding or infection but not limited to, small risk of nerve irritation, scar formation, risk of dry eye, numbness or weakness of chewing muscles. He understands and agrees to the planned procedure, will proceed with excisional biopsy of face lesion of indeterminate behavior, possible flap closure pending operative findings.
[~2022-10-02 12:02] MED LIST changes: -Lactated Ringers 1,000 ML IV SCH; +Sensorcaine 0.25% 10 ML ONE
[2022-10-02] MEDS ORDERED: Lactated Ringers 1,000 ML IV SCH (12:30)
[2022-10-02] MEDS ORDERED: CEFAZOLIN 2 GM-D5W BAG** 2 GM/50 ML ML IV ONE (14:24)
[2022-10-02] MEDS ORDERED: Decadron 4 MG INJ ONE (14:52)
[2022-10-02] MEDS ORDERED: Xylocaine-Mpf 2% 5 Ml Vial ONE (14:52)
[2022-10-02] MEDS ORDERED: SUBLIMAZE 100 MCG/2 ML ONE (14:52)
[2022-10-02] MEDS ORDERED: DIPRIVAN 200 MG/20 ML IV ONE (14:52)
[2022-10-02] MEDS ORDERED: BRIDION 200MG/2ML IV ONE (14:52)
[2022-10-02] MEDS ORDERED: Zemuron 100 MG/10 ML ONE (14:52)
[2022-10-02] MEDS ORDERED: Zofran 4 MG/2 ML VIAL ONE (14:52)
[2022-10-02] MEDS ORDERED: TORAdol 30 mg Injection ONE (14:52)
[2022-10-02] MEDS ORDERED: Sensorcaine 0.25% 10 ML ONE (14:57)
[2022-10-02] MEDS ORDERED: Sodium Chloride 0.9% 10 ML FLUSH Syringe PORT FLUSH PRN (17:24)
[2022-10-02 17:43] VITALS: O2SAT 97
[2022-10-02 17:46] VITALS: BP 168/94; PULSE 68
--- NOTE | 2022-10-03 08:10 | OP ---
SURGERY DATE/TIME: 10/02/2022 1501 PREOPERATIVE DIAGNOSIS: Nonhealing lesion left face of indeterminate behavior, concern for possible carcinoma. POSTOPERATIVE DIAGNOSIS: Nonhealing lesion left face of indeterminate behavior, concern for possible carcinoma. PROCEDURE: Excisional biopsy nonhealing left face preauricular area lesion of indeterminate behavior (approximately 2.5 cm with margins) with advancement flap closure. SURGEON: Dr. Aman Segovia. CRITICAL CARE NURSE SPECIALIST: Karen Yu, Medical Student III. ANESTHESIA: General. ESTIMATED BLOOD LOSS: Minimal. INDICATIONS: As noted above. Risks and benefits explained in detail and not limited to and consent obtained. DESCRIPTION OF PROCEDURE AND FINDINGS: The patient is taken to the operating room. General anesthesia induced. He is prepped and draped in the usual sterile fashion. After official time out and no disagreement with planned procedure, marking out to normal appearing skin on either side then going actually on the ear. Dissection carried down where there seemed to be a normal fascia plane carefully monitoring the nerves to the cheek and eyelid area. Specimen passed off. It measured about 2.5 cm with margins with about 4 to 4.5 cm spindle shaped excision pattern. The specimen is passed off. Hemostasis controlled with some pinpoint cautery. Good hemostasis noted. Flaps were mobilized and undermined on either side and then mobilized back to the midline with interrupted 3-0 Vicryl in deep subcu. Skin closed with 4-0 Vicryl. Steri-Strips and sterile dressing applied. 0.25% Marcaine local injected. The patient tolerated the procedure well. Findings discussed with the family out in the waiting area. He was transferred to the recovery room in stable condition.
== END 2022-10-02 17:40 | disposition home or self-care (01) ==
LOC: SDC 12:02
PROVIDERS: ATTEND Surgery
DX: D04.39 Carcinoma in situ of skin of other parts of face (principal); Z85.038 Personal history of other malignant neoplasm of large intestine; Z85.828 Personal history of other malignant neoplasm of skin
CPT/HCPCS: 99100; J0690; J1100; J1642; J1885; J2405; J2704; J3010

== ENCOUNTER 2024-01-28 08:20 | Day surgery (SDC) | payer MEDICARE, OTHER ==
[~2024-01-28 08:20] MED LIST changes: -Sensorcaine 0.25% 10 ML ONE; +XYLOCAINE 1% HCL 20 ML MDV ONE
[2024-01-28] MEDS ORDERED: Lactated Ringers 1,000 ML IV ONE (08:28)
[2024-01-28] MEDS: Lactated Ringers 1,000 ML IV SCH (08:32)
[2024-01-28 08:43] VITALS: RESP 18
--- NOTE | 2024-01-28 08:54 | HP ---
DATE OF SURGERY: 01/28/2024 HISTORY OF PRESENT ILLNESS: The patient is an 83-year-old gentleman with history of colorectal cancer in the past, no longer using his port. Dr. Guerra did okay it to have removed. The patient desires removal. PAST MEDICAL HISTORY: Chronic obstructive pulmonary disease, hypertension, stroke, arthritis, colorectal cancer. PAST SURGICAL HISTORY: Cataract surgery. Partial colectomy. Hernia repair. Joint replacement. MEDICATIONS: Ipratropium, albuterol for chronic obstructive pulmonary disease, Tylenol, Mucinex, vitamin B12, Xarelto in the past, Lisinopril, clonidine, amlodipine. ALLERGIES: ASPIRIN. FAMILY HISTORY: Pancreatitis and cancer in the past. SOCIAL HISTORY: No smoking or alcohol abuse. REVIEW OF SYSTEMS: Twelve systems reviewed. No chest pain or palpitations. Other systems negative or noncontributory as above and per preadmission questionnaire. PHYSICAL EXAMINATION: Height 6 foot. BMI 17.36. GENERAL: No acute distress. HEENT: Sclerae nonicteric. EOMI. Oral mucous membranes moist. NECK: No JVD. CHEST: Equal excursion, nonlabored breathing. CVS: Regular rate and rhythm. ABDOMEN: Soft. No peritoneal signs. EXTREMITIES: No cyanosis or edema. NEURO: Alert, oriented, moving extremities symmetrically. PSYCH: Appropriate mood and affect. SKIN: Dry. IMPRESSION: Undesired port. I feel he is a candidate for removal. Risk of bleeding or infection possibly requiring packing, risk of hematoma, seroma or aches, pains, burning, numbness, risk of anesthesia, deep venous thrombosis, pulmonary embolism but not limted to, consent obtained. Will proceed with outpatient removal of Port-A-Cath under IV sedation.
[2024-01-28] MEDS ORDERED: SUBLIMAZE 100 MCG/2 ML ONE (10:55)
[2024-01-28] MEDS ORDERED: VERSED 5 MG/5 ML ONE (10:55)
[2024-01-28 11:50] VITALS: BP 162/95; PULSE 67; TEMP 97.6; O2SAT 93
--- NOTE | 2024-01-29 08:45 | OP ---
SURGERY DATE/TIME: 01/28/2024 1055 PREOPERATIVE DIAGNOSIS: Prior history of colorectal carcinoma and no longer needing port, undesired Port-A-Cath. POSTOPERATIVE DIAGNOSES: 1) Prior history of colorectal carcinoma and no longer needing port, undesired Port-A-Cath. 2) Scarred in distal tip of the catheter itself, unable to remove the tip of the catheter. PROCEDURES: 1) Surgeon monitored IV conscious sedation, IV Fentanyl 25 mcg, IV Versed 1 mg. 2) Removal of tunneled Port with removal of majority of catheter with ligation of the distal tiop that was fixated in scar tissue and would not come out smoothly. SURGEON: Dr. Peyman Segovia. ANESTHESIA: IV conscious sedation. IV Fentanyl 25 mcg, IV Versed 1 mg. ESTIMATED BLOOD LOSS: Minimal. INDICATIONS: As noted above. Risks and benefits explained in detail and not limited to and consent obtained. DESCRIPTION OF PROCEDURE AND FINDINGS: The patient is taken to the operating room. Intermittent pulse ox monitoring, blood pressure monitoring, continuous pulse ox. After official time out and no disagreement with planned procedure, he was incrementally sedated with IV Fentanyl and Versed. The chest was then prepped and draped in usual sterile fashion. 1% lidocaine local infiltrated in field pattern around the area. Transverse incision made through the old scar. Dissection carried down. Two Prolene sutures were freed. The port and catheter were pulled upwards. The majority of the catheter was able to be pulled free but the very distal tip was fixated in and it would not slide out completely. It was felt best just to ligate this catheter. We then carefully ligated this with 3-0 Vicryl tie suture ligature. Good hemostasis noted. The catheter and the port were passed off. The subcu and pocket are closed with 3-0 Vicryl. Skin closed with 4-0 Vicryl. Steri-Strips and sterile dressing applied. The patient tolerated the procedure well. Findings discussed with the family out in the waiting area including the fact the very distal tip of his catheter was scarred and would not able to be just simply pulled free so it was ligated this is similar to having a pacemaker left in [facility].
== END 2024-01-28 12:22 | disposition home or self-care (01) ==
LOC: SDC 08:20
PROVIDERS: ATTEND Surgery
DX: Z45.2 Encounter for adjustment and management of vascular access device (principal); L90.5 Scar conditions and fibrosis of skin; T81.597A Other complications of foreign body accidentally left in body following removal of catheter or packing, initial encounter; Z85.038 Personal history of other malignant neoplasm of large intestine
CPT/HCPCS: J2250; J3010

== ENCOUNTER 2025-08-31 08:20 | Day surgery (SDC) | payer MEDICARE, OTHER ==
--- NOTE | 2025-08-30 10:07 | HP ---
HISTORY OF PRESENT ILLNESS: An 85-year-old gentleman, past history of some rectal cancer, had resections. He had a positive Cologuard and needs colonoscopy. Family history negative for colon cancer. PAST MEDICAL HISTORY: Had some rectal cancer and lung cancer in the past. He had hypertension, had a brain aneurysm, had anxiety and the depression in the past, had history of stroke in the past. PAST SURGICAL HISTORY: Had a low anterior resection in the past, had cataract surgery, inguinal hernia repair and right shoulder replaced. Skin cancer excised in the past. He had left hip arthroplasty in the past. FAMILY HISTORY: Skin cancer, arthritis. SOCIAL HISTORY: He is a former smoker. No alcohol abuse. MEDICATIONS: Colesevelam. He has been on Feridex, folic acid, albuterol sulfate for some chronic lung disease, vitamin B12. He has been on Xarelto, lisinopril, clonidine and amlodipine. ALLERGIES: Aspirin. REVIEW OF SYSTEMS: Twelve systems reviewed. No chest pain or palpitations. Other systems negative or noncontributory as above and per preadmission questionnaire. PHYSICAL EXAMINATION: GENERAL: Height 6 foot. BMI 18.85. No acute distress. HEENT: Sclerae nonicteric. NECK: No JVD. CHEST: Equal excursion, nonlabored breathing. CARDIOVASCULAR: Regular rate and rhythm. ABDOMEN: Soft. EXTREMITIES: No cyanosis or edema. NEUROLOGIC: Alert and oriented. He had a prior history of stroke event. PSYCHIATRIC: Appropriate mood and affect. SKIN: Dry. RECTAL: Deferred until time of endoscopy exam. IMPRESSION: History of colorectal cancer status post resection. History of positive Cologuard, needs colonoscopy. Explained the risk sheet. Explained the procedure in detail including but not limited to bleeding or infection; risk of bowel injury or perforation, possible requiring other procedure; risk of missed or nondiagnosis or incomplete exam possibly requiring other procedure or referral; risk of anesthesia or sedation; risk of bowel prep but not limited to. He understands and agrees to the planned procedure. We will proceed with outpatient colonoscopy under MAC anesthesia. Otherwise, hold thinners preop. Continue medications for history of depression and hypertension.
[2025-08-31] MEDS ORDERED: Lactated Ringers 1,000 ML IV ONE (08:26)
[2025-08-31] MEDS: Lactated Ringers 1,000 ML IV SCH (08:31)
[2025-08-31 09:19] LABS: Calcium 8.6 mg/dL (8.4-10.2); Carbon Dioxide 26.0 mmol/L (22-30); Creatinine 1 0.96 mg/dL (0.66-1.25); EST GLOMERULAR FILTRATION RATE 76.5 ML/MIN; Glucose 94.0 mg/dL (74-106); Potassium 3.8 mmol/L (3.5-5.1)
[2025-08-31] MEDS ORDERED: propofoL IV ONE (10:33)
[2025-08-31 12:02] VITALS: RESP 17
[2025-08-31 12:09] VITALS: BP 167/93; PULSE 63; TEMP 96.4; O2SAT 99
--- NOTE | 2025-09-01 11:46 | OP ---
SURGERY DATE/TIME: 08/31/2025 [id number] PREOPERATIVE DIAGNOSES: 1) History of rectal cancer. 2) History of positive Cologuard. 3) Need for followup colonoscopy. POSTOPERATIVE DIAGNOSES: 1) A few small polyps left colon. 2) Polyps, ascending colon and transverse colon. 3) No evidence of recurrence at colorectal anastomosis. PROCEDURES: 1) Colonoscopy to cecum. 2) Hot snare polypectomy of 4 or 5 mm polyp proximal ascending colon. 3) Hot biopsy piecemeal polypectomy of 2 additional polyps ranging from 5 mm to 10 mm removed in piecemeal polypectomy fashion. 4) Hot biopsy piecemeal polypectomy of approximately 7 mm early polyp versus hyperplastic lesion transverse colon. SURGEON: Aman Segovia MD ANESTHESIA: MAC. ESTIMATED BLOOD LOSS: Minimal. INDICATIONS: Consent obtained. DESCRIPTION OF PROCEDURE AND FINDINGS: Patient was taken to the endoscopy room. MAC anesthesia induced. After official time-out and no disagreement in planned procedure, digital rectal exam did not reveal any masses to the patent colorectal anastomotic site. No evidence of recurrence. Videocolonoscope was inserted and passed up through slightly tortuous sigmoid across the descending, transverse, ascending colon to the cecum. Appendiceal orifice and valve well visualized. Prep overall was good. A little bit of liquidy stool in the proximal right colon but overall good prep. Suction irrigated as clear as possible. Scope was carefully withdrawn over the next 10 minutes. There was a 4 to 5 mm polyp in the proximal ascending colon that was removed with hot snare polypectomy. Good hemostasis noted. Otherwise, there was a 5 mm polyp that was removed with hot biopsy piecemeal polypectomy. This may have been a hyperplastic lesion. There was an adenomatous linear polyp on a fold that was about 1 cm size removed with hot biopsy piecemeal polypectomy. Several pieces taken. They were removed fairly well. Otherwise, scope pulled back to transverse colon. There was an early polyp versus hyperplastic lesion about 7 mm removed with hot biopsy piecemeal polypectomy carefully. Good hemostasis noted. Otherwise, scope pulled around the left colon. A few scattered small diverticula. Otherwise, no signs of any large polyps, masses, or obstructing lesions in the left colon. The colorectal anastomotic site was patent. No signs of recurrence. Scope was withdrawn. Patient tolerated the procedure well. Findings discussed with family in the waiting area.
== END 2025-08-31 12:18 | disposition home or self-care (01) ==
LOC: SDC 08:20
PROVIDERS: ATTEND Surgery
DX: Z08 Encounter for follow-up examination after completed treatment for malignant neoplasm (principal); Z85.048 Personal history of other malignant neoplasm of rectum, rectosigmoid junction, and anus; R19.5 Other fecal abnormalities; K57.30 Diverticulosis of large intestine without perforation or abscess without bleeding; D12.2 Benign neoplasm of ascending colon; D12.4 Benign neoplasm of descending colon; D12.3 Benign neoplasm of transverse colon